=== PATIENT | male | born 1960 | race Two or more races ===

== ENCOUNTER 2021-08-31 16:21 | Emergency (ER) | payer OTHER ==
[2021-08-31 16:43] VITALS: BP 148/93; PULSE 62; TEMP 98.4; BMI 32.9
[2021-08-31] MEDS ORDERED: KETOROLAC TROMETHAMINE 30 MG/1 ML VIAL IM ONE (17:20)
[2021-08-31] MEDS ORDERED: KETOROLAC TROMETHAMINE 15 MG/ML VIAL ONE (17:22)
== END 2021-08-31 20:08 | disposition home or self-care (01) ==
LOC: JER 16:21
PROC: 3E023GC Introduction of Other Therapeutic Substance into Muscle, Percutaneous Approach (ICD-10-PCS; principal; 2021-08-31)
DX: M71.21 Synovial cyst of popliteal space [Baker], right knee (principal)
CPT/HCPCS: 93971-TC; 99284-25

== ENCOUNTER 2023-07-13 11:48 | Inpatient (IN) | payer OTHER ==
[2023-07-13] MEDS: SODIUM CHLORIDE 0.9% 500 ML INFUS.BAG IV ONE ×2 (13:29→16:23)
[2023-07-13 13:41] LABS: BASO % 0.1 % (0-2.0); EOS % 0.1 % (0-4.5); HEMATOCRIT 45.5 % (35.4-49); HEMOGLOBIN 15.1 GM/dL (11.7-16.9); MCH 28.4 pg (25.7-33.7); MCHC 33.2 g/dl (32.0-35.9); MEAN CELL VOLUME 85.5 fl (80-96); MONO % 12.4 % (3.8-10.2); NEUT % 65.4 % (42.8-82.8); PLATELET COUNT 258 10^3/uL (134-434); RBC 5.33 M/mm3 (4.00-5.60); RDW 14.5 % (11.9-15.9); WHITE BLOOD COUNT 2.6 K/mm3 (4.0-10.0)
[2023-07-13 13:41] LABS: VENOUS BASE EXCESS -2.5 mmol/L (-2-2); VENOUS O2 SATURATION 37.4 % (70-80); VENOUS PCO2 38.6 mmHg (38-52); VENOUS PH 7.378 (7.310-7.410)
[2023-07-13 13:48] LABS: INR 1.76 (0.83-1.09); PROTHROMBIN TIME (PATIENT) 20.3 SEC (9.7-13.0)
[2023-07-13 13:50] LABS: ACTIVATED PTT 33.9 SECONDS (25.2-36.5)
[2023-07-13 14:00] LABS: POTASSIUM 3.6 mmol/L (3.5-5.1)
[2023-07-13 14:02] LABS: CALCIUM 8.3 mg/dL (8.5-10.1)
[2023-07-13 14:03] LABS: ALBUMIN 3.3 g/dl (3.4-5.0); BLOOD UREA NITROGEN 25.2 mg/dL (7-18)
[2023-07-13 14:06] LABS: CREATININE 2.1 mg/dL (0.55-1.3)
[2023-07-13 14:07] LABS: BILIRUBIN,TOTAL 1.7 mg/dL (0.2-1)
[2023-07-13 14:10] LABS: ANISOCYTOSIS 1+; MACROCYTOSIS 0
[2023-07-13 14:17] LABS: LACTIC ACID 3.2 mmol/L (0.4-2.0)
[2023-07-13 15:41] LABS: EPI CELLS 27 /uL (0-25.1); HYALINE CASTS 9 /uL (0-3.1); PH,URINE 5.5 (5.0-8.0); URINE APPEARANCE CLOUDY; URINE BACTERIA 16 /uL (0-1359); URINE BILIRUBIN 1+ (NEGATIVE); URINE COLOR DK YELLOW; URINE GLUCOSE (UA) NEGATIVE (NEGATIVE); URINE KETONE TRACE (NEGATIVE); URINE LEUK ESTERASE NEGATIVE (NEGATIVE); URINE NITRITE NEGATIVE (NEGATIVE); URINE PROTEIN 2+ (NEGATIVE); URINE RBC 19 /uL (0-23.9); URINE WBC 30 /uL (0-25.8)
[2023-07-13] MEDS ORDERED: PIPERACILLIN/TAZOB 4.5 GM 4.5 GM/100 ML BAG IVPB ONE (15:44)
[2023-07-13] MEDS ORDERED: VANCOMYCIN 1 GRAM (PRE-DOCKED) 1,000 MG/250 ML BAG IVPB ONE (15:45)
[2023-07-13] MEDS ORDERED: ACETAMINOPHEN INJECTION 100 ML IVPB ONE (16:18)
[2023-07-13] MEDS: ACETAMINOPHEN 1000 MG/100 ML BAG IVPB ONE (16:23)
[2023-07-13] MEDS: PIPERACILLIN/TAZOBACTAM 4.5 GM VIAL IVPB ONE (16:23)
[2023-07-13] MEDS: VANCOMYCIN 1,000 MG in DEXTROSE 5%-WATER - 250 ML IVPB ONE (16:48)
[2023-07-13 16:54] LABS: LACTIC ACID 3.2 mmol/L (0.4-2.0)
[2023-07-13 21:15] VITALS: BMI 32.2
[2023-07-13] MEDS: PIPERACILLIN/TAZOB 3.375 GM 3.375 GM in DEXTROSE 5%-WATER - 50 ML IVPB SCH (22:20)
[2023-07-13] MEDS: D5-1/2NS+20 MEQ KCL - 20 MEQ/1,000 ML INFUS.BAG IV SCH (22:20)
[2023-07-14] MEDS: VANCOMYCIN PREMIX 1.5 GM 1,500 MG/300 ML BAG IVPB SCH (06:13)
[2023-07-14 07:27] LABS: HEMATOCRIT 38.6 % (35.4-49); HEMOGLOBIN 13.1 GM/dL (11.7-16.9); MCH 28.9 pg (25.7-33.7); MCHC 33.9 g/dl (32.0-35.9); MEAN CELL VOLUME 85.2 fl (80-96); MEAN PLT VOLUME 7.9 fl (7.5-11.1); PLATELET COUNT 191 10^3/uL (134-434); RBC 4.53 M/mm3 (4.00-5.60); RDW 14.7 % (11.9-15.9); WHITE BLOOD COUNT 4.4 K/mm3 (4.0-10.0)
[2023-07-14 07:32] LABS: POTASSIUM 3.1 mmol/L (3.5-5.1)
[2023-07-14 07:39] LABS: CALCIUM 7.1 mg/dL (8.5-10.1); MAGNESIUM 1.6 mg/dL (1.8-2.4)
[2023-07-14 07:40] LABS: BLOOD UREA NITROGEN 17.3 mg/dL (7-18)
[2023-07-14 07:42] LABS: CREATININE 1.4 mg/dL (0.55-1.3); PHOSPHOROUS 1.7 mg/dL (2.5-4.9)
[2023-07-14 07:44] LABS: BILIRUBIN,TOTAL 0.9 mg/dL (0.2-1); TOT PROT 5.6 g/dl (6.4-8.2)
[2023-07-14 08:09] LABS: ALBUMIN 2.5 g/dl (3.4-5.0)
[2023-07-14 08:11] LABS: INR 1.31 (0.83-1.09); PROTHROMBIN TIME (PATIENT) 15.2 SEC (9.7-13.0)
[2023-07-14 08:14] LABS: ACTIVATED PTT 33.8 SECONDS (25.2-36.5)
[2023-07-14 08:44] LABS: ANISOCYTOSIS 2+; MACROCYTOSIS 0
[2023-07-14] MEDS: POTASSIUM CHLORIDE ORAL LIQUID 20 MEQ/15 ML PO ONE (11:50)
[2023-07-14] MEDS: MAGNESIUM SULF 50% (8.12 MEQ/2 ML-1 GM VIAL) IVPB ONE (16:13)
[2023-07-14] MEDS: POTASSIUM PHOSPHATE 15 MM in SODIUM CHLORIDE 250 ML IVPB ONE (18:36)
[2023-07-14] MEDS: PIPERACILLIN/TAZOB 3.375 GM 3.375 GM in DEXTROSE 5%-WATER - 50 ML IVPB SCH ×2 (21:50→21:51)
[2023-07-15] MEDS: VANCOMYCIN PREMIX 1.5 GM 1,500 MG/300 ML BAG IVPB SCH (01:47)
[2023-07-15 08:28] LABS: POTASSIUM 3.6 mmol/L (3.5-5.1)
[2023-07-15 08:35] LABS: ALBUMIN 2.5 g/dl (3.4-5.0); MAGNESIUM 2.5 mg/dL (1.8-2.4)
[2023-07-15 08:38] LABS: BILIRUBIN,TOTAL 0.6 mg/dL (0.2-1); CREATININE 1.2 mg/dL (0.55-1.3)
[2023-07-16 01:50] VITALS: RESP 18
[2023-07-16 05:44] VITALS: PULSE 65
[2023-07-16 08:31] VITALS: BP 120/74; TEMP 97.9
[2023-07-16 09:06] LABS: CALCIUM 7.7 mg/dL (8.5-10.1); POTASSIUM 3.6 mmol/L (3.5-5.1)
[2023-07-16 09:08] LABS: BLOOD UREA NITROGEN 13.9 mg/dL (7-18)
[2023-07-16 09:10] LABS: CREATININE 1.1 mg/dL (0.55-1.3)
[2023-07-16] MEDS: PIPERACILLIN/TAZOB 3.375 GM 3.375 GM in DEXTROSE 5%-WATER - 50 ML IVPB SCH (09:14)
== END 2023-07-16 10:45 | disposition home or self-care (01) | DRG 683 ==
LOC: JER 11:48 → JERBED 16:27 → J4W 19:50 → J7W 07-15 16:48
PROVIDERS: ADMIT Internal Medicine; ATTEND Family Medicine
DX: N17.9 Acute kidney failure, unspecified (principal); E87.20 Acidosis, unspecified; K52.89 Other specified noninfective gastroenteritis and colitis; E87.6 Hypokalemia; N20.0 Calculus of kidney; R11.10 Vomiting, unspecified; R50.9 Fever, unspecified
CPT/HCPCS: 0241U-QW; 36415; 71045-TC-FY; 74176-TC; 80048; 80053; 81003; 82803; 83605; 83690; 83735; 84100; 84484; 85025; 85610; 85730; 86850; 86900; 86901; 87040; 87086; 87209; 87324; 87449; 93005; 93010; 99285-25; J0131